=== PATIENT | female | born 1965 | race African-American/Black ===

== ENCOUNTER → 2016-12-05 | Outpatient (CLI) | payer OTHER ==
[~2016-12-05] MED LIST: ALDACTONE50 MG PO; BIAXIN 500 MG500 M1; COZAAR 50 MG TA50 M1 PO; CYCLOBENZAPRINE5 MG PO; DANOCRINE200 MG PO; GLUCOPHAGE XR500 MG PO; IBUPROFEN; MEDROXYPROGESTERONE; NAPROSYN500 MG; TRIAMCINOLONE A80 G2
== END ==
LOC: HYPER 11-21 07:04
DX: L97.812 Non-pressure chronic ulcer of other part of right lower leg with fat layer exposed (principal); L88 Pyoderma gangrenosum; R60.0 Localized edema; I87.2 Venous insufficiency (chronic) (peripheral); Z87.891 Personal history of nicotine dependence; Z72.89 Other problems related to lifestyle

== ENCOUNTER → 2020-06-19 | Outpatient (CLI) | payer OTHER | LOC: SJCVCIMAG 10:57 | PROVIDERS: ATTEND Internal Medicine Cardiovascular Disease | DX: I87.2 Venous insufficiency (chronic) (peripheral) (principal) ==

== ENCOUNTER → 2020-06-30 | Outpatient (CLI) | payer OTHER | LOC: HYPER 09:43 | PROVIDERS: ATTEND Emergency Medicine | DX: L97.322 Non-pressure chronic ulcer of left ankle with fat layer exposed (principal); L97.311 Non-pressure chronic ulcer of right ankle limited to breakdown of skin; M32.10 Systemic lupus erythematosus, organ or system involvement unspecified; I87.2 Venous insufficiency (chronic) (peripheral); L90.5 Scar conditions and fibrosis of skin; L91.0 Hypertrophic scar; E66.01 Morbid (severe) obesity due to excess calories; R60.0 Localized edema; M06.9 Rheumatoid arthritis, unspecified; Z68.35 Body mass index [BMI] 35.0-35.9, adult; Z90.89 Acquired absence of other organs ==

== ENCOUNTER → 2020-08-20 | Outpatient (CLI) | payer OTHER | LOC: HYPER 10:00 | PROVIDERS: ATTEND Emergency Medicine | DX: I87.332 Chronic venous hypertension (idiopathic) with ulcer and inflammation of left lower extremity (principal); L97.311 Non-pressure chronic ulcer of right ankle limited to breakdown of skin; M32.10 Systemic lupus erythematosus, organ or system involvement unspecified; L90.5 Scar conditions and fibrosis of skin; L91.0 Hypertrophic scar; L88 Pyoderma gangrenosum; M06.9 Rheumatoid arthritis, unspecified; E66.01 Morbid (severe) obesity due to excess calories; Z68.35 Body mass index [BMI] 35.0-35.9, adult; Z87.01 Personal history of pneumonia (recurrent); Z90.89 Acquired absence of other organs ==

== ENCOUNTER → 2020-09-28 | Outpatient (CLI) | payer OTHER | LOC: HYPER 12:26 | PROVIDERS: ATTEND Emergency Medicine | DX: I87.311 Chronic venous hypertension (idiopathic) with ulcer of right lower extremity (principal); L97.312 Non-pressure chronic ulcer of right ankle with fat layer exposed; M32.10 Systemic lupus erythematosus, organ or system involvement unspecified; L90.5 Scar conditions and fibrosis of skin; L91.0 Hypertrophic scar; L88 Pyoderma gangrenosum; R60.0 Localized edema; E66.01 Morbid (severe) obesity due to excess calories; M06.9 Rheumatoid arthritis, unspecified; Z68.35 Body mass index [BMI] 35.0-35.9, adult; Z87.01 Personal history of pneumonia (recurrent); Z90.89 Acquired absence of other organs ==

== ENCOUNTER → 2020-10-26 | Outpatient (CLI) | payer OTHER | LOC: HYPER 13:23 | PROVIDERS: ATTEND Emergency Medicine | DX: I87.311 Chronic venous hypertension (idiopathic) with ulcer of right lower extremity (principal); L97.312 Non-pressure chronic ulcer of right ankle with fat layer exposed; L97.812 Non-pressure chronic ulcer of other part of right lower leg with fat layer exposed; R60.0 Localized edema; M32.10 Systemic lupus erythematosus, organ or system involvement unspecified; L90.5 Scar conditions and fibrosis of skin; L91.0 Hypertrophic scar; M32.9 Systemic lupus erythematosus, unspecified; M19.90 Unspecified osteoarthritis, unspecified site; M06.9 Rheumatoid arthritis, unspecified; E55.9 Vitamin D deficiency, unspecified; E66.01 Morbid (severe) obesity due to excess calories; Z68.35 Body mass index [BMI] 35.0-35.9, adult; Z87.01 Personal history of pneumonia (recurrent); Z79.899 Other long term (current) drug therapy; Z90.81 Acquired absence of spleen ==

== ENCOUNTER → 2021-01-06 | Outpatient (CLI) | payer OTHER | LOC: HYPER 16:00 | PROVIDERS: ATTEND Emergency Medicine | DX: I87.311 Chronic venous hypertension (idiopathic) with ulcer of right lower extremity (principal); L97.312 Non-pressure chronic ulcer of right ankle with fat layer exposed; L84 Corns and callosities; R60.0 Localized edema; M32.10 Systemic lupus erythematosus, organ or system involvement unspecified; L90.5 Scar conditions and fibrosis of skin; L91.0 Hypertrophic scar; M32.9 Systemic lupus erythematosus, unspecified; M06.9 Rheumatoid arthritis, unspecified; E55.9 Vitamin D deficiency, unspecified; E66.01 Morbid (severe) obesity due to excess calories; Z68.35 Body mass index [BMI] 35.0-35.9, adult; Z87.01 Personal history of pneumonia (recurrent); Z90.81 Acquired absence of spleen ==

== ENCOUNTER → 2021-03-10 | Outpatient (CLI) | payer OTHER | LOC: HYPER 08:58 | PROVIDERS: ATTEND Emergency Medicine Emergency Medical Services | DX: I87.313 Chronic venous hypertension (idiopathic) with ulcer of bilateral lower extremity (principal); L97.812 Non-pressure chronic ulcer of other part of right lower leg with fat layer exposed; L97.822 Non-pressure chronic ulcer of other part of left lower leg with fat layer exposed; L84 Corns and callosities; R60.0 Localized edema; M32.10 Systemic lupus erythematosus, organ or system involvement unspecified; L90.5 Scar conditions and fibrosis of skin; L91.0 Hypertrophic scar; M06.9 Rheumatoid arthritis, unspecified; E55.9 Vitamin D deficiency, unspecified; E66.01 Morbid (severe) obesity due to excess calories; Z68.35 Body mass index [BMI] 35.0-35.9, adult; Z87.01 Personal history of pneumonia (recurrent); Z90.81 Acquired absence of spleen ==

== ENCOUNTER → 2021-04-07 | Outpatient (CLI) | payer OTHER ==
[~2021-04-07] VITALS: Ht 172.7 cm; Wt 154.2 kg
[~2021-04-07] MED LIST changes: +GENTAMICIN OPH3.5 GM OP; +MEDROLDOSEPACK PO; +MOBIC15 MG PO; +MUPIROCIN22 GM TOP; +TIZANIDINE HCL4 M1 PO; +Vitamin D PO
[2021-04-07 11:36] VITALS: BP 176/82
--- NOTE | 2021-04-07 11:44 | NUR ---
Pain Clinic Assessment: 1. History of Osteoarthritis: Not Applicable History of Rheumatoid Arthritis: Not Applicable 2. Height: 5 ft. 8 in. 172.7 cm. Weight: 340.0 lb. oz. 154.224 kg. Patient's BMI: 51.7 3. Vital Signs: BP: 176/82 Pulse: 75 Resp: 16 Temp: 02 Sat: 100 ECG Mon: 4. Pain Intensity: 5 5. Fall Risk: Dizziness: N Needs help standing or walking: N Fallen in the last 3 months: N Fall risk comments: 6. Patient on Blood Thinner: None 7. History of Hypertension: N 8. Opioid Therapy greater than 6 weeks: N Opiate Contract Signed: 9. Risk Assessment Tool Provided: low 10. Functional Assessment Tool: 11. Recreational Drug Use: Never Drug Type: Tobacco Use: Never Smoker Tobacco Type: Amount or Packs/day: How Many Years: Alcohol Use: Yes Frequency: Weekly Quant: 1-2
== END ==
LOC: PAIN 07:04
PROVIDERS: ATTEND Anesthesiology Pain Medicine
DX: M54.5 Low back pain (principal); I10 Essential (primary) hypertension; Z79.899 Other long term (current) drug therapy; Z79.891 Long term (current) use of opiate analgesic; Z72.89 Other problems related to lifestyle; Z88.0 Allergy status to penicillin; Z88.2 Allergy status to sulfonamides

== ENCOUNTER → 2021-04-09 | Outpatient (CLI) | payer OTHER ==
[~2021-04-09] VITALS: Ht 172.7 cm; Wt 154.8 kg
[2021-04-09 12:34] VITALS: BP 160/92
--- NOTE | 2021-04-09 12:47 | NUR ---
Pain Clinic Assessment: 1. History of Osteoarthritis: Not Applicable History of Rheumatoid Arthritis: Not Applicable 2. Height: 5 ft. 8 in. 172.7 cm. Weight: 341.2 lb. oz. 154.768 kg. Patient's BMI: 51.9 3. Vital Signs: BP: 160/92 Pulse: 79 Resp: 16 Temp: 02 Sat: 100 ECG Mon: 4. Pain Intensity: 1 5. Fall Risk: Dizziness: N Needs help standing or walking: N Fallen in the last 3 months: N Fall risk comments: 6. Patient on Blood Thinner: None 7. History of Hypertension: N 8. Opioid Therapy greater than 6 weeks: N Opiate Contract Signed: 9. Risk Assessment Tool Provided: low 10. Functional Assessment Tool: 11. Recreational Drug Use: Never Drug Type: Tobacco Use: Never Smoker Tobacco Type: Amount or Packs/day: How Many Years: Alcohol Use: Yes Frequency: Weekly Quant: 1 per week
== END | disposition home or self-care (01) ==
LOC: PAIN 06:58
PROVIDERS: ATTEND Anesthesiology Pain Medicine
DX: M79.18 Myalgia, other site (principal); M54.5 Low back pain; M19.90 Unspecified osteoarthritis, unspecified site; Z98.890 Other specified postprocedural states; Z79.899 Other long term (current) drug therapy; Z88.0 Allergy status to penicillin; Z88.2 Allergy status to sulfonamides; Z91.041 Radiographic dye allergy status

== ENCOUNTER → 2021-04-29 | Outpatient (CLI) | payer OTHER | LOC: HYPER 09:23 | PROVIDERS: ATTEND Emergency Medicine | DX: I87.313 Chronic venous hypertension (idiopathic) with ulcer of bilateral lower extremity (principal); L97.322 Non-pressure chronic ulcer of left ankle with fat layer exposed; L97.312 Non-pressure chronic ulcer of right ankle with fat layer exposed; L97.812 Non-pressure chronic ulcer of other part of right lower leg with fat layer exposed; L97.822 Non-pressure chronic ulcer of other part of left lower leg with fat layer exposed; R60.0 Localized edema; M32.10 Systemic lupus erythematosus, organ or system involvement unspecified; L90.5 Scar conditions and fibrosis of skin; L91.0 Hypertrophic scar; M32.9 Systemic lupus erythematosus, unspecified; M06.9 Rheumatoid arthritis, unspecified; M19.90 Unspecified osteoarthritis, unspecified site; E66.01 Morbid (severe) obesity due to excess calories; Z68.35 Body mass index [BMI] 35.0-35.9, adult; Z87.01 Personal history of pneumonia (recurrent); Z79.899 Other long term (current) drug therapy ==

== ENCOUNTER → 2021-05-24 | Outpatient (CLI) | payer OTHER | LOC: HYPER 12:12 | PROVIDERS: ATTEND Emergency Medicine | DX: I87.313 Chronic venous hypertension (idiopathic) with ulcer of bilateral lower extremity (principal); L97.312 Non-pressure chronic ulcer of right ankle with fat layer exposed; L97.322 Non-pressure chronic ulcer of left ankle with fat layer exposed; L97.812 Non-pressure chronic ulcer of other part of right lower leg with fat layer exposed; L97.822 Non-pressure chronic ulcer of other part of left lower leg with fat layer exposed; R60.0 Localized edema; M32.10 Systemic lupus erythematosus, organ or system involvement unspecified; L90.5 Scar conditions and fibrosis of skin; L91.0 Hypertrophic scar; M32.9 Systemic lupus erythematosus, unspecified; M06.9 Rheumatoid arthritis, unspecified; E66.01 Morbid (severe) obesity due to excess calories; Z68.35 Body mass index [BMI] 35.0-35.9, adult; Z87.01 Personal history of pneumonia (recurrent); Z98.890 Other specified postprocedural states; Z79.899 Other long term (current) drug therapy; Z90.89 Acquired absence of other organs ==